=== PATIENT | female | born 1995 | race Hispanic/Latino ===

== ENCOUNTER → 2021-08-04 08:57 | Outpatient (CLI) | payer OTHER, SELFPAY ==
[2021-08-04 09:36] LABS: Glucose Fasting 97 mg/dL (70-100)
[2021-08-04 11:11] LABS: Glucose 1 Hour 163 mg/dL (70-170)
[2021-08-04 12:14] LABS: Glucose 2 Hour 157 mg/dL (70-140)
[2021-08-04 12:19] LABS: Glucose Tol Interpretation INTERPRETATION
[2021-08-04 13:32] LABS: Glucose 3 Hour 122 mg/dL (70-115)
== END ==
PROVIDERS: Referring Provider Nurse Practitioner Obstetrics & Gynecology; Visit Provider Nurse Practitioner Obstetrics & Gynecology
DX: Z34.92 Encounter for supervision of normal pregnancy, unspecified, second trimester (principal); Z13.1 Encounter for screening for diabetes mellitus; Z3A.16 16 weeks gestation of pregnancy
CPT/HCPCS: 36415; 82951; 82952

== ENCOUNTER → 2023-08-01 11:47 | Outpatient (CLI) | payer OTHER, SELFPAY | PROVIDERS: Family Provider Orthopaedic Surgery; PCP Orthopaedic Surgery; Referring Provider Orthopaedic Surgery; Visit Provider Orthopaedic Surgery | DX: M25.539 Pain in unspecified wrist (principal) | CPT/HCPCS: 95885; 95886; 95912 ==

== ENCOUNTER 2023-10-21 11:03 | Emergency (ER) | payer OTHER, SELFPAY ==
[2023-10-21 11:07] VITALS: BP 134/86; PULSE 84; RESP 17; TEMP 36.6; O2SAT 97
[2023-10-21 12:55] LABS: Bacteria Urine None Seen; Culture Indicated Urine Cult Not Indicated; RBC Urine 0-1/HPF (0-5/HPF); Squamous Epithelial Cell Urine None Seen (0-5/HPF); Urine Volume 10mL (spun); WBC Urine None Seen (0-5/HPF)
--- NOTE | 2023-10-21 14:25 | DI.CT.S_ITS ---
PROCEDURE: CT KIDNEY URETER BLADDER (KUB) INDICATIONS: flank pain TECHNIQUE: Axial sections were acquired from the lung bases to the pubic symphysis. Coronal and sagittal reformats were performed. For radiation dose reduction, the following was used: automated exposure control, adjustment of mA and/or kV according to patient size. COMPARISON: None. FINDINGS: Image quality: Diagnostic. Lower Chest: No significant findings. URINARY: Right Kidney: No stones or hydronephrosis. Right Ureter: No hydroureter. Left Kidney: No stones or hydronephrosis. Left Ureter: Non-obstructing stone in the left UVJ, without hydroureter. This measures 2-3 millimeters. Bladder: Normal wall thickness. No stones. ABDOMEN: Liver: No contour-deforming solid mass. Gallbladder: No radiopaque gallstones or wall thickening. Biliary ducts: No biliary dilation. Pancreas: No ductal dilation. Spleen: Size is within normal limits. Adrenal Glands: No adrenal nodules. Stomach and Bowel: Normal colonic caliber, without significant wall thickening. No significant diverticular disease. Normal appendix. Peritoneum: No abnormal intraperitoneal fluid. No free air. Ventral Wall: No hernia. Abdominal Nodes: No enlarged retroperitoneal or mesenteric lymph nodes. Vessels: Aorta and inferior vena cava are normal in size. PELVIS: Pelvic Organs: IUD within the central uterus. Pelvic Nodes: Unremarkable. Miscellaneous: No inguinal hernias are seen. Bones: Unremarkable. IMPRESSION: 2-3 millimeter stone in the left UVJ, without hydronephrosis. Dictated by: Brady Munoz M.D. on 10/21/2023 at 14:46 Approved by: Brady Munoz M.D. on 10/21/2023 at 14:48
--- NOTE | 2023-10-21 17:47 | PC.NURSE ---
I went to bring the patient to a room and she was no longer in the lobby. 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 I informed her that she does in fact have a kidney stone and that she should come back so we can get lab work to check her kidney function, give her urine strainers, and give her meds for pain control. She reports she will find a tax clerk and come back to the ER.
--- NOTE | 2023-10-21 18:32 | ED_ITS ---
HPI - Female Genitourinary General Chief complaint: Urogenital-Female Stated complaint: low back pain, poss uti Source: patient Mode of arrival: Ambulatory History of Present Illness HPI Narrative: Patient left without being seen by provider Related Data Home Medications Medication Instructions Recorded Confirmed metformin 500 mg tablet,extended 500 mg PO DAILY 10/21/23 10/21/23 release 24 hr sertraline 100 mg tablet 75 mg PO DAILY 10/21/23 10/21/23 Allergies Allergy/AdvReac Type Severity Reaction Status Date / Time No Known Drug Allergies Allergy Verified 10/21/23 11:09 Patient History alcohol intake frequency: a few times a month Substance Use Type: does not use Exam Initial Vital Signs Initial Vital Signs: Vital Signs Temperature 98 F 10/21/23 11:07 Pulse Rate 84 10/21/23 11:07 Respiratory Rate 17 10/21/23 11:07 Blood Pressure 134/86 10/21/23 11:07 Pulse Oximetry 97 10/21/23 11:07 Oxygen Delivery Method Room Air 10/21/23 11:07 Course Orders Ordered: ED Orders 10/21/23 11:46 Urine Microscopic Stat 10/21/23 12:15 Complete Blood Count AUTO DIFF Stat Comprehensive Metabolic Panel Stat Lipase Stat 10/21/23 14:25 CT kidney ureter bladder (KUB) Stat Discontinued Medications Ondansetron HCl (Ondansetron 4 Mg/2 Ml Inj) 4 mg IV NOW PRN PRN Reason: Nausea And Vomiting Ondansetron HCl (Ondansetron 4 Mg Odt) 4 mg PO NOW PRN PRN Reason: Nausea And Vomiting Vital Signs Vital signs: Vital Signs - 8 hr 10/21/23 11:07 Temperature 98 F Pulse Rate 84 Respiratory Rate 17 Blood Pressure 134/86 Pulse Oximetry 97 Oxygen Delivery Method Room Air MDM - Female Genitourinary Lab Data Labs: Lab Results 10/21/23 Range/Units 11:46 Urine RBC 0-1/hpf (0-5/HPF) Urine WBC None seen (0-5/HPF) Ur Squamous Epith Cells None seen (0-5/HPF) Urine Bacteria None seen (None) Ur Culture Indicated? Cult not indicated Vol Urine Centrifuged 10ml (spun) Point of Care Testing Test Results Negative Urine Dip Bedside Urine Glucose Negative Bedside Urine Bilirubin - Negative Bedside Urine Ketone - Negative Urine Specific [place] 1.010 Bedside Urine Occult Blood ++ Bedside Urine pH 6.0 Bedside Urine Protein - Negative Bedside Urine Urobilinogen - Negative Bedside Urine Nitrite - Negative Bedside Urine Leukocytes - Negative Esterase Discharge Plan Departure Patient Disposition: Left Without Being Seen Clinical Impression: Patient left without being seen Prescriptions: No Action sertraline 100 mg tablet 75 mg PO DAILY metformin 500 mg tablet extended release 24 hr 500 mg PO DAILY
== END 2023-10-21 17:54 | disposition left against medical advice (07) ==
PROVIDERS: Emergency Provider Emergency Medicine; Family Provider Orthopaedic Surgery; PCP Orthopaedic Surgery
DX: N20.1 Calculus of ureter (principal); R10.9 Unspecified abdominal pain
CPT/HCPCS: 74176; 81003; 81015; 81025

== ENCOUNTER 2023-10-21 19:52 | Emergency (ER) | payer OTHER, SELFPAY ==
[2023-10-21 20:03] VITALS: BP 124/79; PULSE 96; RESP 18; TEMP 36.4; O2SAT 97; BMI 37.1
[2023-10-21 20:37] LABS: Add Manual Diff / Slide Review NO; Basophils Absolute Auto 100 /uL (0-100); Basophils Percent Auto 0.8 % (0-2); Eosinophils Absolute Auto 200 /uL (0-450); Eosinophils Percent Auto 3.5 % (2-4); Hematocrit 35.8 % (36-46); Hemoglobin 12.1 g/dL (12.0-16.0); Lymphocytes Absolute Auto 2300 /uL (1100-4500); Lymphocytes Percent Auto 35.1 % (25-40); Mean Corpuscular HGB Conc 33.9 % (30-36); Mean Corpuscular Hemoglobin 29.3 PG (26-34); Mean Corpuscular Volume 86.4 fL (80-100); Monocytes Absolute Auto 400 /uL (0-900); Monocytes Percent Auto 6.8 % (3-14); Neutrophils Absolute Auto 3500 /uL (1500-7000); Neutrophils Percent Auto 53.8 % (50-75); Platelet Count 354 X10^3/uL (150-400); Red Blood Cell Count 4.15 X10^6/uL (4.0-5.2); Red Cell Distribution Width 16.2 % (11.6-14.8); White Blood Cell Count 6.5 X10^3/uL (4.5-11.0)
[2023-10-21 20:50] LABS: Alanine Aminotransferase 31 IU/L (<35); Albumin 4.2 g/dL (3.5-5.0); Albumin Globulin Ratio 1.2 (1.0-2.8); Alkaline Phosphatase 116 U/L (38-126); Aspartate Aminotransferase 30 IU/L (14-36); BUN Creatinine Ratio 24.6 (6-22); Bilirubin Total 0.4 mg/dL (0.2-1.3); Blood Urea Nitrogen 17 mg/dL (7-17); Calcium 9.3 mg/dL (8.4-10.2); Carbon Dioxide 24 mmol/L (22-32); Chloride 108 mmol/L (98-107); Estimated Glomerular Filt Rate > 60 mL/min (>60); Globulin 3.6 g/dL (1.7-4.1); Glucose 108 mg/dL (70-100); HEMOLYSIS < 15 (0-50); Lipase 126 U/L (23-300); Potassium 3.4 mmol/L (3.4-5.1); Sodium 140 mmol/L (137-145); Total Protein 7.8 g/dL (6.3-8.2)
--- NOTE | 2023-10-21 23:28 | ED.GENADULT ---
HPI - General Adult General Chief complaint: Recheck/Abnormal Lab/Rx Stated complaint: returned to ER from earlier today Time Seen by Provider: 10/21/23 23:27 Source: patient Mode of arrival: Ambulatory History of Present Illness HPI narrative: 28-year-old woman with a history of diet-controlled diabetes, depression who presents with 24 hours of severe left colicky pain. She has had some mild urgency sensation without actually being able to void, no dysuria symptoms present for 4 days. In last 24 hours she has had a number of episodes lasting anywhere for 2-3 hours of severe left flank pain radiating into her groin. No hematuria, no vaginal discharge no diarrhea, constipation, vomiting, fevers. She presented to the emergency department earlier today and due to extended weights chose to leave prior to being seen by a physician but after lab work and CT scans were done. Related Data Home Medications Medication Instructions Recorded Confirmed metformin 500 mg tablet,extended 500 mg PO DAILY 10/21/23 10/21/23 release 24 hr sertraline 100 mg tablet 75 mg PO DAILY 10/21/23 10/21/23 Allergies Allergy/AdvReac Type Severity Reaction Status Date / Time No Known Drug Allergies Allergy Verified 10/21/23 11:09 Review of Systems Review of Systems Narrative: Pertinent positive and negative findings as per HPI Patient History Social History Smoking Status: Former smoker Smoking Status: Former smoker alcohol intake frequency: a few times a month Substance Use Type: does not use Exam Initial Vital Signs Initial Vital Signs: Vital Signs Temperature 97.5 F L 10/21/23 20:03 Pulse Rate 96 H 10/21/23 20:03 Respiratory Rate 18 10/21/23 20:03 Blood Pressure 124/79 10/21/23 20:03 Pulse Oximetry 97 10/21/23 20:03 Oxygen Delivery Method Room Air 10/21/23 20:03 General: Alert appropriate in no acute distress Respiratory: Able to speak in full sentences, no obvious respiratory distress Abdomen: Soft nontender. Mild left flank pain Skin: No obvious rashes, warm and dry Neurologic: Grossly intact no obvious asymmetries or abnormalities Psych: appropriate insight and affect, cooperative Course Orders Ordered: ED Orders 10/21/23 20:15 Complete Blood Count AUTO DIFF Stat Comprehensive Metabolic Panel Stat Lipase Stat Ondansetron HCl (Ondansetron 4 Mg/2 Ml Inj) 4 mg IV NOW PRN PRN Reason: Nausea And Vomiting Vital Signs Vital signs: Vital Signs - 8 hr 10/21/23 20:03 Temperature 97.5 F L Pulse Rate 96 H Respiratory Rate 18 Blood Pressure 124/79 Pulse Oximetry 97 Oxygen Delivery Method Room Air Medical Decision Making Lab Data 10/21/23 20:15 10/21/23 20:15 Labs: Lab Results 10/21/23 Range/Units 20:15 WBC 6.5 (4.5-11.0) X10^3/uL RBC 4.15 (4.0-5.2) X10^6/uL Hgb 12.1 (12.0-16.0) g/dL Hct 35.8 L (36-46) % MCV 86.4 (80-100) fL MCH 29.3 (26-34) PG MCHC 33.9 (30-36) % RDW 16.2 H (11.6-14.8) % Plt Count 354 (150-400) X10^3/uL Neut % (Auto) 53.8 (50-75) % Lymph % (Auto) 35.1 (25-40) % [place] % (Auto) 6.8 (3-14) % Eos % (Auto) 3.5 (2-4) % Baso % (Auto) 0.8 (0-2) % Neut # (Auto) 3500 (2082-3009) /uL Lymph # (Auto) 2300 (0883-8683) /uL [place] # (Auto) 400 (0-900) /uL Eos # (Auto) 200 (0-450) /uL Baso # (Auto) 100 (0-100) /uL Sodium 140 (137-145) mmol/L Potassium 3.4 (3.4-5.1) mmol/L Chloride 108 H (98-107) mmol/L Carbon Dioxide 24 (22-32) mmol/L BUN 17 (7-17) mg/dL Creatinine 0.69 (0.52-1.04) mg/dL Estimated GFR > 60 (>60) mL/min BUN/Creatinine Ratio 24.6 H (6-22) Glucose 108 H (70-100) mg/dL Calcium 9.3 (8.4-10.2) mg/dL Total Bilirubin 0.4 (0.2-1.3) mg/dL AST 30 (14-36) IU/L ALT 31 (<35) IU/L Alkaline Phosphatase 116 (38-126) U/L Total Protein 7.8 (6.3-8.2) g/dL Albumin 4.2 (3.5-5.0) g/dL Globulin 3.6 (1.7-4.1) g/dL Albumin/Globulin Ratio 1.2 (1.0-2.8) Lipase 126 (23-300) U/L Imaging Data CT scan - abdomen/pelvis: Radiologist's Impression: PROCEDURE: CT KIDNEY URETER BLADDER (KUB) INDICATIONS: flank pain TECHNIQUE: Axial sections were acquired from the lung bases to the pubic symphysis. Coronal and sagittal reformats were performed. For radiation dose reduction, the following was used: automated exposure control, adjustment of mA and/or kV according to patient size. COMPARISON: None. FINDINGS: Image quality: Diagnostic. Lower Chest: No significant findings. URINARY: Right Kidney: No stones or hydronephrosis. Right Ureter: No hydroureter. Left Kidney: No stones or hydronephrosis. Left Ureter: Non-obstructing stone in the left UVJ, without hydroureter. This measures 2-3 millimeters. Bladder: Normal wall thickness. No stones. ABDOMEN: Liver: No contour-deforming solid mass. Gallbladder: No radiopaque gallstones or wall thickening. Biliary ducts: No biliary dilation. Pancreas: No ductal dilation. Spleen: Size is within normal limits. Adrenal Glands: No adrenal nodules. Stomach and Bowel: Normal colonic caliber, without significant wall thickening. No significant diverticular disease. Normal appendix. Peritoneum: No abnormal intraperitoneal fluid. No free air. Ventral Wall: No hernia. Abdominal Nodes: No enlarged retroperitoneal or mesenteric lymph nodes. Vessels: Aorta and inferior vena cava are normal in size. PELVIS: Pelvic Organs: IUD within the central uterus. Pelvic Nodes: Unremarkable. Miscellaneous: No inguinal hernias are seen. Bones: Unremarkable. IMPRESSION: 2-3 millimeter stone in the left UVJ, without hydronephrosis. Dictated by: Brady Munoz M.D. on 10/21/2023 at 14:46 MDM Narrative Medical decision making narrative: CC: Left flank pain in intermittent severity for the last 24 hours Complicating co-morbidities: Diabetes, depression Data collected from: patient Differential considered: Pyelonephritis, kidney stone, alternate explanation for acute hydronephrosis, pelvic inflammatory disease, diverticulitis Exam documented above, pertinent findings include: Patient is examined when she is not having episodes of severe pain. Minor left flank tenderness no abdominal abnormalities certainly no acute surgical abdomen Lab Test results independently reviewed as above. Pertinent findings: CBC shows no significant abnormalities and no significant leukocytosis Chemistries are unremarkable, lipase is reassuring Imaging studies independently reviewed: CT KUB shows a 2-3 mm stone at the left ureterovesical junction without hydronephrosis Treatments: Toradol IV Discussion: 28-year-old woman with left ureteral stone. Almost ready to drop into the bladder. With shared decision-making knowing that the majority of her pain has already been experienced, she declines any narcotics to have available at home. We talked about ibuprofen and Tylenol. Reviewed anticipated course of finally passing stone, reasons to return to the emergency department. There is no indication for additional workup, lab work or imaging. She is safe for discharge Discharge Plan Departure Patient Disposition: Home Clinical Impression: Kidney stone Instructions: DI for Kidney Stones Activity Restrictions/Additional Instructions: Thank you for coming in and then coming back today With a 2-3 mm kidney stone that is almost into your bladder. This means that you have done the majority of the hard work in getting this past over the last 24 hours. Once it drops into your bladder you likely will not notice it when it comes out with your urine. Currently there was no signs of significant obstruction, infection or other complications. Please make sure that you do continue to drink plenty of fluid, cutting back on any soda that you typically consume can be helpful. Using 400 mg of ibuprofen (2 [id number] pills) and 1 Tylenol every 6 hours can be very helpful in controlling pain. If you do notice that your pain is uncontrollable, your having increasing figures or more dull pain into your left side you do need to return to the emergency department for further evaluation Prescriptions: No Action sertraline 100 mg tablet 75 mg PO DAILY metformin 500 mg tablet extended release 24 hr 500 mg PO DAILY Referrals: Cleopatra Shukla DO [Primary Care Provider] - Stand Alone Forms: Patient Portal/API
[2023-10-21] MEDS: KETOROLAC 30 MG/ML VIAL 15 MG IV (23:48)
[2023-10-21 23:57] VITALS: BP 107/79; PULSE 77; RESP 17; O2SAT 98
== END 2023-10-21 23:58 | disposition home or self-care (01) ==
PROVIDERS: Emergency Provider Emergency Medicine; Family Provider Orthopaedic Surgery; PCP Orthopaedic Surgery
DX: N20.0 Calculus of kidney (principal); N20.1 Calculus of ureter; R10.9 Unspecified abdominal pain
CPT/HCPCS: 74176; 80053; 81003; 81015; 81025; 83690; 85025; 96374; 99282; 99283; 99284; J1885